=== PATIENT | male | born 1955 | race Hispanic/Latino ===

== ENCOUNTER 2024-08-29 12:43 | Emergency (ER) | payer SELFPAY ==
[2024-08-29 13:04] VITALS: BP 145/90
--- NOTE | 2024-08-29 15:05 | ED.GENMED ---
History of Present Illness
General
Chief Complaint: Skin Problem
Source: patient and christian science practitioner
Exam Limitations: none
Time Seen by Provider: 08/29/24 14:42
Nursing documentation reviewed up to this point in time: agreed with
History of Present Illness
History of Present Illness:
68-year-old [id number] male on no medications visiting from [facility] for another month presents for a left fourth finger tip injury with a hammer accidentally when he was helping his son build steps. Patient says he hammered his left
finger causing laceration. Looks like the nail plate is avulsed. He is unaware of any recent tetanus shot. Patient has full range of motion, bleeding is controlled.
Phy Exam
Physical Exam
Physical Exam:
GENERAL: Alert , in no apparent distress, comfortable at rest
HEAD: NCAT
CV: 2+ radial pulse
NEUROLOGICAL: Alert and oriented, no focal neuro deficits, , 5/5 strength, sensation intact, ambulation slight limp right leg
SKIN: Warm and dry, macerated irregular laceration/avusion of the nail plate, distal fingertip with nailbed laceration, macerated tissue; no obvious bone exposure
MUSCULOSKELETAL: distal fingertip avulsion/alceration
full ROM
PSYCH: Normal and appropriate interaction.
Course
Orders/Labs/Results
Orders:
Orders
08/29/24 13:06
CR Finger(s)/thumb Min 2 Vw Lt Urgent
Comment:
Reason For Exam: injury
Indicate Which Finger:: Ring Finger
08/29/24 14:53
CeFAZolin 2 GRAM [Ancef] 2 grams in 10 ml IV NOW
Tetanus/Diphth/Acelpertussis [Adacel] 0.5 ml IM .ONCE ONE
08/29/24 15:07
Ketorolac [Toradol] 30 mg IV NOW STA
Vital Signs
Initial and Last Documented VS:
Initial Vital Signs
Temp Pulse Resp BP Pulse Ox
36.6 C 79 18 145/90 92
08/29/24 13:04 08/29/24 13:04 08/29/24 13:04 08/29/24 13:04 08/29/24 13:04
Last Documented Vital Signs
Temp Pulse Resp BP Pulse Ox
36.6 C 79 18 145/90 92
08/29/24 13:04 08/29/24 13:04 08/29/24 13:04 08/29/24 13:04 08/29/24 13:04
Procedures
Laceration Closure
Left Fourth Finger(s):
Status of Wound: clean
Description of Wound Edges: ragged and macerated
Preparation: cleaned with saline
Anesthesia: 1% Lidocaine and Digital-Regional
Revision/Debridement: minor revision and irrigate-direct pressure
Wound exploration: explored to base- no FB
Type of Closure: single layer closure
Skin Closure Material: 5-0 nylon
Number of sutures: 4
MDM/Problems Addressed
Differential Diagnosis Includes:
laceration, open fracture
MDM/Problems Addressed:
68-year-old male with an open fracture to his left distal fourth fingertip
Comminuted avulsed fracture of the distal phalanx on x-ray independently reviewed by me. Tetanus updated in the emergency department. IV Ancef given. Discussed the case with on-call orthopedic surgeon. Given his lack of insurance and residency
could be difficult to get him followed up. He technically lives in [place] with his family but was in [place] when this happened at his son's house. He was given the instructions to follow-up with the [facility] in
[facility] versus coming to [facility].
i spoke with dr. chiu from ortho who recommended he see dr. laura tomorrow int he [place] office
i called myself and made the patient an appt for 1030 am
Anesthetize, irrigate, close, Xeroform
*Critical Care Note
Total Time (30-74mins, 75-104mins- exclusive of procedures): Not Applicable
ED Attending Note
-
Portions of this chart may have been created with voice recognition software.� Occasional wrong word or��sound alike� substitutions may have occurred due to the inherent limitations of voice recognition software.
Discharge Plan
Departure
Patient Disposition: Home (Routine Discharge)
Date of Disposition: 08/29/24
Time of Disposition: 15:48
Patient with high blood pressure during this ER visit?: Yes
Condition: Fair
Covid-19: Not Applicable
Discharge Problem:
Open fracture of finger, Laceration of finger
Instructions: Wound Care (DC)
Prescriptions:
New
cephalexin 500 mg capsule
500 mg PO QID Qty: 28 0RF
Referrals:
NONE,* [Family Provider] -
Miller Laura MD [Active] - Tomorrow
(1030 AM
THE ADDRESS:
[address] [place] [address]
[place]
[facility] [address]
[phone])
Activity Restrictions/Additional Instructions:
You have a broken fingertip and a laceration that was partially repaired.
you have an appointment tomorrow with a specialist
leave the dressing in place until tomorrow.
take 1 dose of antibiotics tonight.
then start tomorrow 4 times a day.
for pain you can take tylenol every 6 hours and motrin every 8 hours. (the motrin was already given through the vein, so your next dose could be before bed).
return for any concerns.
Tiene la punta de un dedo rota y lara laceraci�n parcialmente reparada.
Ma�cait tiene danyelle con un especialista.
Deje el vendaje puesto hasta ma�cait.
[place] lara dosis de antibi�ticos esta noche.
Luego, empiece ma�cait 4 veces al d�a.
Para el dolor, puede jeff Tylenol cada 6 horas y Motrin cada 8 horas. (El Motrin ya se administr� por v�a intravenosa, as� que davidson pr�xima dosis podr�a ser antes de acostarse).
Regrese si tiene alguna inquietud.
Interventions
Interventions:
*Risk Screen - Suicide Last Done: 08/29/24 15:51
*General Assessment Last Done: 08/29/24 13:05
*Neglect/Abuse Screening Last Done: 08/29/24 14:31
*ED COVID-19 Vaccine History Last Done: 08/29/24 13:05
*Nursing Disposition Last Done: 08/29/24 15:52
ED-Skin Assessment Last Done: 08/29/24 14:31
Discharge Date and Time
Discharge Date/Time: 08/29/24 16:06
Print Language: MOLDOVAN
[2024-08-29] MEDS: TORADOL 30 MG IV (15:17)
[2024-08-29] MEDS: ANCEF 10 IV (15:17)
[2024-08-29] MEDS: ADACEL 0.5 ML IM (15:20)
== END 2024-08-29 16:06 | disposition home or self-care (01) ==
LOC: EMR 12:43
PROVIDERS: EMERGENCY PHYSICIAN Emergency Medicine
DX: S62.635B Displaced fracture of distal phalanx of left ring finger, initial encounter for open fracture (principal); W22.8XXA Striking against or struck by other objects, initial encounter; Z23 Encounter for immunization
CPT/HCPCS: 99284; 96374; 96375; 12001; 90471; 73140; 90715